=== PATIENT | female | born 1975 | race Caucasian/White ===

== ENCOUNTER 2018-03-25 02:35 | Observation (INO) ==
[2018-03-25] MEDS ORDERED: Isovue-370 500 ML INFUS..BTL IV ONE (02:59)
--- NOTE | 2018-03-25 03:17 | Emergency Department Note ---
Disposition Clinical Impression: Chest pain Qualifiers: Chest pain type: unspecified Qualified Code(s): R07.9 - Chest pain, unspecified Disposition: Admitted As Inpatient Condition: Undetermined Referrals: NONE,PCP [Primary Care Provider] - Forms: ED Satisfaction Letter Chest Pain HPI - General Chief Complaint: ED Chest Pain Stated Complaint: chest/back pain Time Seen by Provider: 03/25/18 02:41 Source: patient, family Mode of arrival: ambulatory Limitations: no limitations Vital Signs Reviewed: Yes Nursing Notes Reviewed: Yes - History of Present Illness HPI Narrative: 42-year-old female with history of TIA, hypertension, smoking, Edita the emergency department with complaint of upper back pain that started roughly 24 hours ago is progressively gotten worse. The patient states it radiates straight through to her chest and she feels a throbbing sensation in her back. The patient has associated dyspnea. The patient also radiates down the right shoulder and upper extremity. The patient states she feels reveals weakness of her right upper extremity as well. Patient denies any abdominal pain, nausea, vomiting, paresthesias, fevers, chills. Patient has no previous history of NM but does state she had a stress test roughly 1 year ago. Severity scale (1-10): 6 - Related Data Home Medications Medication Instructions Recorded Confirmed Aspirin [Lo-Dose Aspirin EC] 81 mg PO DAILY 03/25/18 03/25/18 [place] Carbonate ER [Eskalith] 450 mg PO BID 03/25/18 03/25/18 Verapamil [Isoptin] 80 mg PO BID 03/25/18 03/25/18 Allergies Allergy/AdvReac Type Severity Reaction Status Date / Time codeine Allergy Hives Verified 03/25/18 02:47 [place] Allergy Swelling Verified 03/25/18 02:47 of Lip/Tongue/Throat All systems ED: reviewed and negative except as stated. Constitutional: Denies: fever, chills, weakness ENT ED: Denies: congestion Cardiovascular: Reports: chest pain. Denies: dyspnea on exertion, edema, syncope Respiratory: Reports: dyspnea. Denies: cough, wheezes, sputum production Gastrointestinal: Denies: abdominal pain, nausea, vomiting Genitourinary: Denies: urgency, dysuria Musculoskeletal: Reports: back pain. Denies: neck pain, arthralgia, myalgia Integumentary: Denies: rash Neurological: Reports: weakness. Denies: headache, numbness, paresthesias, confusion Chest Pain PMH - Past Medical History Medical history: Reports: CVA, hypertension, migraine, other Psychiatric history: Reports: anxiety, bipolar, depression, PTSD, other REPORT PROGRAMMER history: Reports: no REPORT PROGRAMMER history - Social History Smoking Status: Current every day smoker Alcohol use: Reports: none Drug use: Reports: marijuana Physical Exam - General Limitations: no limitations General appearance: alert, in no apparent distress - Head Head exam: atraumatic, normocephalic, normal inspection - Eye Eye exam: Present: normal appearance, PERRL, EOMI - ENT ENT exam: normal exam, normal oropharynx, mucous membranes moist - Neck Neck exam: Present: normal inspection, full ROM, trachea midline - Chest Chest inspection: Present: normal inspection, symmetric chest wall rise - Respiratory Respiratory exam: Present: normal lung sounds bilaterally - Cardiovascular Cardiovascular exam: Present: regular rate, normal rhythm, normal heart sounds - Abdominal Exam Abdominal exam: Present: soft, Non-Tender. Absent: tenderness, distention, guarding, rebound, rigidity - Extremities Exam Extremities exam: Present: normal inspection, full ROM. Absent: tenderness, pedal edema - Neurological Exam Neurological exam: Present: alert, oriented X3 - Skin Skin exam: Present: warm, dry, intact, normal color Course Vital Signs Temperature 97.7 F 03/25/18 02:45 Pulse Rate 82 03/25/18 02:45 Respiratory Rate 18 03/25/18 02:45 Blood Pressure 136/91 03/25/18 02:45 O2 Sat by Pulse Oximetry 98 03/25/18 02:45 Temperature 97.7 F 03/25/18 03:06 Pulse Rate 76 03/25/18 04:44 Respiratory Rate 18 03/25/18 04:44 Blood Pressure 111/77 03/25/18 04:44 O2 Sat by Pulse Oximetry 99 03/25/18 04:44 Oxygen Delivery Oxygen Delivery Room Air Chest Pain - MDM Narrative Medical decision making narrative: Patient's workup in the emergency department demonstrates no acute process. The patient's troponin was negative and CTA chest demonstrates no acute process. We will that the patient to the hospital for his history alone at this time. The patient's pain has improved with nitroglycerin. Patient made aware and agrees to plan. No further questions noted. - Lab Data Lab results reviewed: Yes I reviewed the patient's lab results. Result diagrams: 03/25/18 03:08 03/25/18 03:08 Lab Results 03/25/18 03/25/18 Range/Units 03:08 03:08 WBC 14.9 H (4.3-11.1) K/mcL RBC 4.36 (3.82-4.97) M/mcL Hgb 13.5 (11.5-15.4) g/dL Hct 41.7 (35.3-44.9) % MCV 95.6 (83.0-100.0) fL MCH 31.0 (28.0-33.3) pg MCHC 32.4 (31.6-35.5) g/dL RDW 14.2 (11.5-14.5) % Plt Count 228 (140-400) K/mcL MPV 12.5 H (9.4-12.4) fL Immature Gran % 0.4 (0-4) % Seg Neutrophils % 51.5 % Lymphocytes % 37.1 % Monocytes % 7.6 % Eosinophils % 2.9 % Basophils % 0.5 % Neutrophils # 7.7 (1.6-8.9) K/mcL Lymphocytes # 5.5 H (0.6-4.6) K/mcL Monocytes # 1.1 (0.0-1.3) K/mcL Eosinophils # 0.4 (0.0-0.6) K/mcL Basophils # 0.1 (0.0-0.2) K/mcL Sodium 139 (136-145) mEq/L Potassium 3.3 L (3.5-5.1) mEq/L Chloride 107 (98-107) mEq/L Carbon Dioxide 23 (23-29) mEq/L BUN 9 (6-20) mg/dL Creatinine 1.10 (0.60-1.20) mg/dL Est GFR ( Amer) > 60 (> 60) Est GFR (Non-Af Amer) 54 L (> 60) BUN/Creatinine Ratio 8 (6-26) Glucose 93 (70-105) mg/dL Calculated Osmolality 286 (280-300) Calcium 9.6 (8.6-10.3) mg/dL Troponin I < 0.03 (< 0.04) ng/mL - Radiology Data Radiology results reviewed: Yes I reviewed the patient's radiology results. Chest CTA 03/25/18 02:59 IMPRESSION: No evidence of acute aortic injury. Minimal reticular opacity within the left lower lobe, likely atelectasis or inflammatory/infectious pneumonitis. Hepatic steatosis. D/ / Severo Hayes / Severo Hayes Interpreting Provider: Severo Hayes Chest X-Ray 03/25/18 02:59 IMPRESSION: Negative portable chest. D/ / Rigoberto Armstrong MD / Rigoberto Armstrong MD Interpreting Provider: Rigoberto Armstrong MD Abdomen/Pelvis CTA 03/25/18 03:00 IMPRESSION: No evidence of acute aortic injury. Minimal reticular opacity within the left lower lobe, likely atelectasis or inflammatory/infectious pneumonitis. Hepatic steatosis. D/ / Severo Hayes / Severo Hayes Interpreting Provider: Severo Hayes - EKG Data EKG attestation: Yes I reviewed and interpreted this EKG. EKG results narrative: Heart rate 77 beats for minute. Normal sinus rhythm. No ST elevation or ST depression noted. EKG identical to EKG from 11/09/2017. No acute changes noted. Attestation Statement - Attestation Attestation: I examined this patient and my medical decision-making was reviewed with the Resident Physician. I agree with the documented findings, disposition and treatment plan as described except to the extent set forth below. Findings consistent with chest pain. Symptoms are fairly atypical but will warrant further workup. Pain is nitro responsive.
[2018-03-25 03:20] LABS: Basophils # 0.1 K/mcL (0.0-0.2); Basophils % 0.5 %; Eosinophils # 0.4 K/mcL (0.0-0.6); Eosinophils % 2.9 %; Hematocrit 41.7 % (35.3-44.9); Hemoglobin 13.5 g/dL (11.5-15.4); Immature Granulocytes % 0.4 % (0-4); Lymphocytes # 5.5 K/mcL (0.6-4.6); Lymphocytes % 37.1 %; Mean Corpuscular HGB Conc 32.4 g/dL (31.6-35.5); Mean Corpuscular Volume 95.6 fL (83.0-100.0); Mean Platelet Volume 12.5 fL (9.4-12.4); Monocytes # 1.1 K/mcL (0.0-1.3); Monocytes % 7.6 %; Neutrophils # 7.7 K/mcL (1.6-8.9); Platelet Count 228 K/mcL (140-400); Red Blood Count 4.36 M/mcL (3.82-4.97); Red Cell Distribution Width 14.2 % (11.5-14.5); Segmented Neutrophils % 51.5 %
[2018-03-25 03:41] LABS: BUN/Creatinine Ratio 8 (6-26); Blood Urea Nitrogen 9 mg/dL (6-20); Calcium 9.6 mg/dL (8.6-10.3); Carbon Dioxide 23 mEq/L (23-29); Chloride 107 mEq/L (98-107); Glucose 93 mg/dL (70-105); Osmolality,Calculated 286 (280-300); Potassium 3.3 mEq/L (3.5-5.1); Sodium 139 mEq/L (136-145); eGFR For African Americans > 60 (> 60); eGFR For Non-African Americans 54 (> 60)
[2018-03-25 03:42] LABS: Troponin I < 0.03 ng/mL (< 0.04)
[2018-03-25] MEDS ORDERED: Nitroglycerin 0.4 MG TAB.SUBL SL PRN (04:34)
[2018-03-25] MEDS ORDERED: *HR* FentaNYL (PF) 100 MCG/2 ML VIAL IVP ONE (04:46)
[2018-03-25] MEDS ORDERED: Naloxone 0.4 MG/ML INJ IVP PRN (06:18)
[2018-03-25] MEDS ORDERED: *HR* HYDROcodone/Acet 5/325 mg TABLET PO PRN (06:18)
[2018-03-25] MEDS ORDERED: Acetaminophen 325 MG TABLET PO PRN (06:18)
--- NOTE | 2018-03-25 06:32 | Internal Med History&Physical ---
Date of Encounter: 03/25/18 Time of Encounter: 06:21 Internal Medicine - H&P: HPI Chief complaint: CP Admitted From: Home Plans for Post Hospital Care: Home History of present illness: Ms. Peterson is a 42 year old female with a past medical history of TIA A, her. Lumbar texts, hypertension, and bipolar who presented to the ED from home after 2 days of chest pressure. Patient states that she has had back pain has radiated to her chest is located between her shoulder blades and radiates out to her shoulder blades at has associated chest pressure. She stated that it feels like someone is sitting on her. Last night she went to bed and the chest pain woke her up she has had associated right arm elbow and shoulder numbness and tingling. Chest pain is not worsened with walking she says that it improves by laying down and stretching out her arms above her head. Admits to some fluttering feelings. She denies associated diaphoresis. Patient's CV risk factors include smoking since 9 y/o, hypertension, obesity, grandpa had an [place] at 56 years old. Upon arrival to the ED vitals are within normal limits. Laboratory studies showed a white blood cell count 14.9 with no leukocytosis, potassium 3.3, troponin negative. Chest x-ray was negative for acute process. CTA of chest, abdomen, and pelvis showed minimal reticular opacity within the left lower lobe , likely atelectasis or inflammatory/infectious pneumonitis. In the ED patient was given potassium chloride 40 mEq, nitroglycerin, and fentanyl 50 mcg. patient 's chest pain was relieved that after the nitroglycerin was given. Patient was admitted to the floor for ACS rule out. Past Med Surg Social Fam HX - Past Medical History Medical history: CVA, hypertension, migraine, other Additional medical history: personalilty disorders Psychiatric history: anxiety, bipolar, depression, PTSD, other - Past Surgical History Additional surgical history: Blood patch and Spinal tap - Social History Smoking Status: Current every day smoker Smokeless Tobacco Status: No Alcohol use: none Drug use: marijuana Internal Medicine - H&P: Meds Aspirin [Lo-Dose Aspirin EC] 81 mg PO DAILY 03/25/18 [History] [place] Carbonate ER [Eskalith] 450 mg PO BID 03/25/18 [History] Verapamil [Isoptin] 80 mg PO BID 03/25/18 [History] 3 Allergy/AdvReac Type Severity Reaction Status Date / Time codeine Allergy Hives Verified 03/25/18 02:47 [place] Allergy Swelling Verified 03/25/18 02:47 of Lip/Tongue/Throat All Systems PM: A 10-system review of systems was performed and is negative for pertinent findings except as documented above in the HPI. - Constitutional Vitals: Temp Pulse Resp BP Pulse Ox 97.7 F 76 14 117/89 95 03/25/18 03:06 03/25/18 05:44 03/25/18 06:09 03/25/18 06:09 03/25/18 05:44 Exam: Constitutional: Alert, in no acute distress Head: Normocephalic, atraumatic Heart: elevated jugular veinous distension, Normal, regular rate and rhythm, no murmurs Lungs: Clear to auscultation, no wheezes, rales, or rhonchi Abdomen: Soft, nondistended, nontender, bowel sounds present and normal, no guarding or rigidity. Extremities: No edema, No clubbing, radial pulse +2/4, capillary refill <2sec. Skin: Skin warm and dry, no lesions, no rashes, no jaundice Neurologic: Cranial nerves II through XII grossly intact, strength 5/5 in all extremities Psych: Cooperative with exam, good eye contact, cognitive function intact, speech clear, thought process logical, and goal directed Internal Med - H&P Results - Labs CBC & Chem 7: 03/25/18 03:08 03/25/18 03:08 - Assessment and plan (1) Chest pain Current Visit: Yes Status: Acute Assessment and plan: Atypical chest pain but is relieved by nitro. EKG no ST elevation. Patient has a HEART score of 4. Initial troponin negative. Previous nuclear stress test at [facility] 1 year ago that was negative. Plan: - trending troponins - cardiology consult placed, awaiting recommendations - continue telemetry - continue home aspirin - nitro for chest pain relief - Diet: NPO for possible stress - lipid panel in the AM Qualifiers: Chest pain type: other chest pain Qualified Code(s): R07.89 - Other chest pain; R07.8 - Other chest pain (2) Bipolar 1 disorder Current Visit: Yes Status: Acute Assessment and plan: Continue home medications. [place] level. (3) HTN (hypertension) Current Visit: Yes Status: Chronic Assessment and plan: Currently BP wnl. Will continue home Verapamil 80 mg BID. Qualifiers: Hypertension type: essential hypertension Qualified Code(s): I10 - Essential (primary) hypertension (4) DVT prophylaxis Current Visit: Yes Status: Acute Assessment and plan: ICDs - Time Spent With Patient Total time spent is greater than 50% in coordination of care (as documented) at patient's floor/unit and/or counseling patient:
[2018-03-25 07:23] LABS: Prothrombin Time 10.8 Seconds (9.4-12.1)
[2018-03-25 07:26] LABS: Activated Partial Thrombo Time 35.5 Seconds (26.0-36.0)
[2018-03-25 07:50] VITALS: BP 113/79
[2018-03-25] MEDS ORDERED: Lithium Carbonate ER 450 MG TABLET.ER PO SCH (09:00)
[2018-03-25] MEDS ORDERED: Aspirin Enteric Coated 81 MG Tablet PO SCH (09:00)
--- NOTE | 2018-03-25 09:37 | Cardiology Consult Note ---
Date of Encounter: 03/25/18 Time of Encounter: 08:30 Assessment and Plan (1) Chest pain Status: Acute Per cardiology: -Reported back pain that radiated into chest. -Back pain reproduceable with palpation. -Denies current chest pain. No exertional symptoms. -Troponins negative x2. -No acute ischemic ECG changes. -Reports stress a year ago at [facility], normal. -Atypical chest pain, reproduceable with palpation. -Recommend TTE, if LVEF preserved, can consider outpatient follow up with cardiology. -Unfortunately, after patient was seen and examined by myself, she signed out AMA. Qualifiers: Chest pain type: other chest pain Qualified Code(s): R07.89 - Other chest pain; R07.8 - Other chest pain (2) Tobacco abuse Status: Acute Per cardiology: -Reports smoking 1ppd for 30 years. -Smoking cessation education reviewed. Discussion w patient/family: The assessment and plan as outlined above was discussed with the patient and/or family members who expressed understanding and agreement. All questions were answered. Thank you for involving us in the care of your patient. Please call with any questions. Discussed and reviewed with Dr.John Seth, however he was unable to see patient due to her signing out AMA. History of Present Illness Consult date: 03/25/18 Requesting physician: Trudy Huang Consult reason: chest pain Chief complaint: back pain History of present illness: Ms. Peterson is a 42 year old female with a relevant past medial history of HTN, reported TIA x3, tobacco abuse who presented to [facility] with complaints of back pain radiating into chest. States pain started while at rest. Denies exertional symptoms. Reports some shortness of breath. Denies aggravating or alleviating factors. Reports pain woke her up from sleeping today. States pain was relieved after nitro and fentanyl in ER. Denies current pain. Past Med Surg Social Fam HX - Past Medical History Attestation: Yes The following information was validated with the patient. Source: patient, old records reviewed, obtained from family Medical history: CVA, hypertension, migraine, other Additional medical history: personalilty disorders Psychiatric history: anxiety, bipolar, depression, PTSD, other - Past Surgical History Additional surgical history: Blood patch and Spinal tap - Social History Smoking Status: Current every day smoker Packs per day: 1 Smokeless Tobacco Status: No Alcohol use: none Drug use: marijuana - Family History Maternal Grandfather Age at : 56 Cause of : AR Hx Family Cardiac Disorders: Yes (AR) Hx Family Respiratory Disorders: No Hx Family Cancer: No Hx Family GI Disorders: No Hx Family Genitourinary Disorders: No Hx Family Endocrine Disorder: No Hx Family Musculoskeletal Disorders: No Hx Family Neuromuscular Disorders: No Hx Family Neurologic Disorders: No Hx Family HEENT Disorders: No Hx Family Autoimmune Disorders: No Hx Family Reproductive Disorders: No Hx Family Psychosocial Disorders: No Hx Family Medical Disorders: No Mother Hx Family Cancer: Yes Hx Family Genitourinary Disorders: Yes (Kidney disease) Hx Family Reproductive Disorders: Yes (Hyst) Medications and Allergies Aspirin [Lo-Dose Aspirin EC] 81 mg PO DAILY 03/25/18 [History] Gabapentin [Neurontin] 1,200 mg PO TID 03/25/18 [History] [place] Carbonate ER [Eskalith] 450 mg PO BID 03/25/18 [History] Verapamil [Isoptin] 80 mg PO BID 03/25/18 [History] 3 Allergy/AdvReac Type Severity Reaction Status Date / Time codeine Allergy Hives Verified 03/25/18 02:47 [place] Allergy Swelling Verified 03/25/18 02:47 of Lip/Tongue/Throat All Systems Review: The remainder of the systems were reviewed and are negative - Cardiovascular Cardiovascular: as per HPI, chest pain at rest - Musculoskeletal Musculoskeletal: back pain Physical Examination Vital Signs, Last 4 Hours Temp Pulse Resp BP Pulse Ox 03/25/18 07:47 97.7 F 65 17 113/79 94 03/25/18 06:09 14 117/89 General: Conversant, No Apparent Distress HEENT: Atraumatic, Normocephaly, Mucus Membranes Moist Neck: No JVD, Normal carotid pulses Cardiac: Reg Rate and Rhythm, Normal S1 and S2, No Murmur Lungs: Normal Breath Sounds, No Wheeze, Rales, Rhonchi Neuro: Alert and responsive, No focal deficits noted Abdomen: Soft, Non-Tender Skin: No rashes noted on visualized skin Musculoskeletal: Other (Back pain reproduceable with palpation. ) Extremities: No Clubbing, No Cyanosis, No Edema, Normal Pulses Results 03/25/18 03:08 03/25/18 03:08 Lab Results Impressions Chest CTA 03/25/18 02:59 IMPRESSION: No evidence of acute aortic injury. Minimal reticular opacity within the left lower lobe, likely atelectasis or inflammatory/infectious pneumonitis. Hepatic steatosis. D/ / 03/25/2018 07:33:10 Severo viveros Interpreting Provider: Severo Hayes Chest X-Ray 03/25/18 02:59 IMPRESSION: Negative portable chest. D/ / Rigoberto Armstrong MD / Rigoberto Armstrong MD Interpreting Provider: Rigoberto Armstrong MD Abdomen/Pelvis CTA 03/25/18 03:00 IMPRESSION: No evidence of acute aortic injury. Minimal reticular opacity within the left lower lobe, likely atelectasis or inflammatory/infectious pneumonitis. Hepatic steatosis. D/ / 03/25/2018 07:33:10 Severo viveros Interpreting Provider: Severo Hayes Laboratory Tests 03/25/18 03/25/18 03/25/18 03:08 03:08 06:46 WBC 14.9 H Hgb 13.5 Creatinine 1.10 Troponin I < 0.03 < 0.03 - Imaging and Cardiology Chest Xray: report reviewed Echo: pending - EKG Interpretation EKG results cardiology: personally reviewed (ECG with SR, HR 77.), other (Not on telemetry) Consult Discharge Plan - Plan Referrals: NONE,PCP [Primary Care Provider] -
--- NOTE | 2018-03-25 12:58 | Internal Med Progress Note ---
Date of Encounter: 03/25/18 Time of Encounter: 09:00 - Assessment and plan (1) Chest pain Status: Acute Assessment and plan: Per hx , patient is positive for TIA, hypertension and bipolar . She continues to wear portable telemetry. denying any chest pain shortness of breath headache swelling of her feet or legs at this time. Review of records shows she is stable , with consistent normal serial troponin levels. Will continue to monitor telemetry as previous ordered. If normal will consider discharge to home. Patient left AMA Qualifiers: Chest pain type: other chest pain Qualified Code(s): R07.89 - Other chest pain; R07.8 - Other chest pain (2) HTN (hypertension) Status: Chronic Assessment and plan: Per hx of hypertension, review of chart b/p stable, and normal limits of <140/ 90. Wlll continue with her routine regimen of home medications of Verapamil. Qualifiers: Hypertension type: essential hypertension Qualified Code(s): I10 - Essential (primary) hypertension (3) Bipolar 1 disorder Status: Acute Assessment and plan: Per Hx, taking [place] 450 mg bid, Pleasant cooperative with this Provider, however, easily agitated with staff, and later signed herself out AMA. (4) DVT prophylaxis Status: Acute - Time Spent With Patient Total time spent is greater than 50% in coordination of care (as documented) at patient's floor/unit and/or counseling patient: - Subjective Interval history: Mrs. Peterson admitted per ED for chest pain and was placed on Telemetry. States she was awoken from sleep around 1 AM with back pain, difficulty breathing, and anterior chest pain. Positive history for TIA, Hypertension, and bipolar d/o . Today she denies chest pain, back pain, shortness of breath, cough, swelling of feet or legs. States that she feeling much better, is ambulatory around her room, and on the unit. - Constitutional Vitals: Temp Pulse Resp BP Pulse Ox 97.7 F 65 17 113/79 94 03/25/18 07:47 03/25/18 07:47 03/25/18 07:47 03/25/18 07:47 03/25/18 07:47 General appearance: Present: A&O X 3, pleasant, no acute distress, answers questions appropriately - Neck Neck exam general surgery: Present: supple, trachea midline - Respiratory Respiratory exam: Present: CTAB - Cardiovascular Cardiovascular exam: Present: RRR (Portable telemetry in place ) - Extremities Exam Extremities exam: Present: normal capillary refill, normal inspection - Back Exam Back exam: Present: full ROM - Neurological Exam Neurological exam: Present: alert, CN II-XII intact, oriented X3, reflexes normal, no focal deficits, pronater drift, facial droop - Psychiatric Psychiatric exam: Present: agitated (after leaving patients room and while standing outside of the patient's room, nursing staff attempted to instruct and request that she not leave the unit. It appears that she had left the unit and went off the floor to obtain a soda pop. Josef became aggitated with nursing staff, cursing, calling her names, and stating that she was leaving here. She continued to be aggitated and in the end she self signed out AMA. ) Internal Medicine: Result - Labs CBC & Chem 7: 03/25/18 03:08 03/25/18 03:08 Labs: Cardiac Enzymes 03/25/18 Range/Units 06:46 Troponin I < 0.03 (< 0.04) ng/mL - ABG Interpretation ABG results: PT/INR, D-dimer PT 10.8 Seconds (9.4-12.1) 03/25/18 06:46 Consult Discharge Plan - Plan Referrals: NONE,PCP [Primary Care Provider] -
--- NOTE | 2018-03-25 16:38 | Electrocardiograph Report ---
[address] [address] Test Date: 2018-03-25 Pat Name: Wendi Peterson Department: 102 Room: 3B38 Gender: F Telephone Directory Deliverer: [id number] : 1975 Requested By: Jose Paz Order Number: [id number] Reading MD: Cee Mares Measurements Intervals [place] Rate: 77 P: 29 TN: 157 QRS: 33 QRSD: 82 T: 23 QT: 366 QTc: 398 Interpretive Statements SINUS RHYTHM LOW QRS VOLTAGE IN PRECORDIAL LEADS [QRS DEFLECTION < 1.0 mV IN CHEST LEADS] NONSPECIFIC T-WAVE ABNORMALITY Electronically Signed On 03-25-2018 16:36:06 EDT by Cee Mares
== END 2018-03-25 09:20 | disposition left against medical advice (07) ==
LOC: EMEROO 02:35 → 3BNU 02:35
PROVIDERS: ADMIT Internal Medicine; ATTEND Internal Medicine